=== PATIENT | female | born 1945 | race Caucasian/White ===

== ENCOUNTER 2023-10-07 11:48 | Outpatient (AMB) | payer MEDICARE, MEDICAID, SELFPAY ==
--- NOTE | 2023-10-07 12:01 | HO.NEPHOV_ITS ---
HPI HPI Comments History of Present Illness Details I had the privilege of seeing Selina in follow-up of her chronic kidney disease. She has history of hypertension and is on medications which is keeping her blood pressure at goal. She has osteoarthritis and had been taking nonsteroidals in the past which she has stopped. She has history of coronary artery disease but denies CVA, CHF, DEDRICK or PD. She had been a smoker. She maintains good hydration and avoids nonsteroidal anti-inflammatories. She does not have any active new complaints at the time this office visit. [facility] Medical History (Updated 10/21/23 @ 21:17 by Davion Pedroza MD) Vitamin D deficiency Hyperlipidemia Osteopenia Osteoarthrosis multiple sites, not specified as generalized Intraductal carcinoma in situ of left breast Hypothyroidism Acute myocardial infarction Surgical History S/P breast lumpectomy Family History Mother Hypertension Diabetes Daughter Cancer Hypertension Social History Alcohol intake: current Patient Tobacco Use Status: Current someday Tobacco user Vital Signs 10/07/23 12:02 Height 5 ft 1.5 in Weight 139 lb 4 oz BMI 25.9 Pulse 59 Pulse Source Pulse Oximeter Physical Exam Vital Signs: Last Vital Signs Pulse 59 10/07/23 12:02 BMI result Body Mass Index 25.9 Const General: comfortable and no acute distress Orientation/consciousness: patient oriented x3 HEENT Head: Yes normocephalic Mouth: Normal oral and palatal mucosa present Eyes EOM: EOMs intact bilaterally Neck Neck: Yes supple Resp Auscultation: clear to auscultation bilaterally Cardio Jugular venous distension: no JVD Rate: regular rate GI Palpation (GI): Soft to palpation Auscultation: normal bowel sounds General: Yes no CVA tenderness Back/Spine/Pelvis Back: no CVA tenderness Skin General skin exam: no rashes or lesions noted Neuro General: patient oriented x3 and moves all extremities Extrem General: Yes no pedal edema Assessment & Plan Assessment & Plan (1) Hypertension: Code(s): I10 - Essential (primary) hypertension Qualifiers: Hypertension type: primary hypertension Qualified Code(s): I10 - Essential (primary) hypertension (2) CKD (chronic kidney disease) stage 3, GFR 30-59 ml/min: Code(s): N18.30 - Chronic kidney disease, stage 3 unspecified Qualifiers: Chronic kidney disease stage 3 subtype: stage 3a (GFR 45-59) Qualified Code(s): N18.31 - Chronic kidney disease, stage 3a Nadia Marks has chronic kidney disease stage 3. Her renal functions had been stable. She has no renal artery stenosis by imaging studies. She has discontinued her nonsteroidal anti-inflammatories in the past. She tries to keep up with good hydration and maintain low-sodium diet. She is on ZORAIDA-inhibitor. Her blood pressure is at goal. I did not make any medication changes today. Follow-up lab work ordered. Answered all questions. Follow-up given. Orders: Orders Electrolytes 10/07/23 N18.30 - Chronic kidney disease, stage 3 unspecified, I10 - Essential (primary) hypertension Blood Urea Nitrogen 10/07/23 N18.30 - Chronic kidney disease, stage 3 unspecified, I10 - Essential (primary) hypertension Creatinine 10/07/23 N18.30 - Chronic kidney disease, stage 3 unspecified, I10 - Essential (primary) hypertension Calcium 10/07/23 N18.30 - Chronic kidney disease, stage 3 unspecified, I10 - Essential (primary) hypertension Protein Creatinine Ratio, Ur 10/07/23 N18.30 - Chronic kidney disease, stage 3 unspecified, I10 - Essential (primary) hypertension Coding Level of Care Code Est Pt Level 3 (37096) Diagnoses Primary hypertension I10 Hypertension type: primary hypertension Stage 3a chronic kidney disease N18.31 Chronic kidney disease stage 3 subtype: stage 3a (GFR 45-59) Results Reviewed Nephrology Results: No Data to Display
[2023-10-07 12:02] VITALS: PULSE 59; BMI 25.9
== END 2023-10-07 12:36 | disposition home or self-care (01) ==
PROVIDERS: PCP Family Medicine; Visit Provider Internal Medicine Nephrology
DX: I10 Essential (primary) hypertension (principal); N18.31 Chronic kidney disease, stage 3a
CPT/HCPCS: 99213

== ENCOUNTER → 2023-10-07 11:48 | Outpatient (BNVA) | payer MEDICARE, MEDICAID, SELFPAY | PROVIDERS: PCP Family Medicine; Visit Provider Internal Medicine Nephrology | DX: I12.9 Hypertensive chronic kidney disease with stage 1 through stage 4 chronic kidney disease, or unspecified chronic kidney disease (principal); N18.31 Chronic kidney disease, stage 3a | CPT/HCPCS: 99212 ==

== ENCOUNTER 2024-03-31 13:28 | Outpatient (REF) | payer MEDICARE, MEDICAID, SELFPAY ==
[2024-03-31 18:45] LABS: Anion Gap 12 (12-20); Blood Urea Nitrogen 22 mg/dL (9-16); Calcium 9.1 mg/dL (8.4-10.2); Carbon Dioxide 23 mmol/L (22-29); Chloride 111 mmol/L (96-108); Estimated Glomerular Filt Rate 48; Potassium 4.2 mmol/L (3.3-5.1); Sodium 142 mmol/L (135-145)
[2024-03-31 18:50] LABS: Creatinine Urine 57.31 mg/dL; Total Protein Urine Random < 7 mg/dL (<12)
== END 2024-03-31 13:29 | disposition home or self-care (01) ==
LOC: HO.HKASLDS 13:28
PROVIDERS: Visit Provider Internal Medicine Nephrology
DX: I12.9 Hypertensive chronic kidney disease with stage 1 through stage 4 chronic kidney disease, or unspecified chronic kidney disease (principal); N18.30 Chronic kidney disease, stage 3 unspecified
CPT/HCPCS: 36415; 80051; 82310; 82565; 82570; 84156; 84520

== ENCOUNTER 2024-04-09 11:50 | Outpatient (AMB) | payer MEDICARE, MEDICAID, SELFPAY ==
[2024-04-09 12:25] VITALS: BP 122/78; PULSE 58; O2SAT 95; BMI 27.2
--- NOTE | 2024-04-09 12:25 | HO.NEPHOV ---
Vital Signs 04/09/24 12:25 Height 5 ft 1.5 in Weight 146 lb 4 oz BMI 27.2 BP 122/78 Blood Pressure Location Rt brachial Position Sitting Pulse 58 Pulse Source Pulse Oximeter Pulse Oximetry (%) 95 Oxygen Delivery Method Room Air Intake Visit Reasons: 6M follow up/ Confirmed 04/02/2024 [employer] Manager Required: No Accompanied by: Self / Same As Patient Allergies latex Allergy (Verified 04/09/24 12:27) Rash Penicillins Allergy (Verified 04/09/24 12:27) Unknown HPI Comments Details: I had the privilege of seeing Selina in follow-up of her chronic kidney disease. She has history of hypertension and is on medications which is keeping her blood pressure at goal. She has osteoarthritis and had been taking nonsteroidals in the past which she has stopped. She has history of coronary artery disease but denies CVA, CHF, DEDRICK or PD. She had been a smoker. She maintains good hydration and avoids nonsteroidal anti-inflammatories. She does not have any active new complaints at the time this office visit. [facility] Medical History (Updated 10/21/23 @ 21:17 by Davion Pedroza MD) Vitamin D deficiency Hyperlipidemia Osteopenia Osteoarthrosis multiple sites, not specified as generalized Intraductal carcinoma in situ of left breast Hypothyroidism Acute myocardial infarction Surgical History S/P breast lumpectomy Family History Mother Hypertension Diabetes Daughter Cancer Hypertension Social History Alcohol intake: current Patient Tobacco Use Status: Current someday Tobacco user Physical Exam Vital Signs: Last Vital Signs Pulse 58 04/09/24 12:25 BP 122/78 04/09/24 12:25 Pulse Ox 95 04/09/24 12:25 Oxygen Delivery Method Room Air 04/09/24 12:25 BMI result Body Mass Index 27.2 Const General: comfortable and no acute distress Orientation/consciousness: patient oriented x3 HEENT Head: Yes normocephalic Mouth: Normal oral and palatal mucosa present Eyes EOM: EOMs intact bilaterally Neck Neck: Yes supple Resp Auscultation: clear to auscultation bilaterally Cardio Jugular venous distension: no JVD Rate: regular rate GI Palpation (GI): Soft to palpation Auscultation: normal bowel sounds General: Yes no CVA tenderness Back/Spine/Pelvis Back: no CVA tenderness Skin General skin exam: no rashes or lesions noted Neuro General: patient oriented x3 and moves all extremities Extrem General: Yes no pedal edema Results Reviewed Nephrology Results: Sodium 142 mmol/L (135-145) 03/31/24 Potassium 4.2 mmol/L (3.3-5.1) 03/31/24 Chloride 111 mmol/L (96-108) H 03/31/24 Carbon Dioxide 23 mmol/L (22-29) 03/31/24 BUN 22 mg/dL (9-16) H 03/31/24 Creatinine 1.11 mg/dL (0.5-1.4) 03/31/24 Calcium 9.1 mg/dL (8.4-10.2) 03/31/24 Urine Creatinine 57.31 mg/dL 03/31/24 Protein/Creatinin Ratio TNP 03/31/24 Assessment & Plan Assessment & Plan (1) CKD (chronic kidney disease) stage 3, GFR 30-59 ml/min: Code(s): N18.30 - Chronic kidney disease, stage 3 unspecified Category: Medical Qualifiers: Chronic kidney disease stage 3 subtype: stage 3a (GFR 45-59) Qualified Code(s): N18.31 - Chronic kidney disease, stage 3a (2) Hypertension: Code(s): I10 - Essential (primary) hypertension Category: Medical Qualifiers: Hypertension type: primary hypertension Qualified Code(s): I10 - Essential (primary) hypertension Plan Selina has chronic kidney disease stage 3. Her renal functions had been stable. She has no renal artery stenosis by imaging studies. She has discontinued her nonsteroidal anti-inflammatories in the past. She tries to keep up with good hydration and maintain low-sodium diet. She is on ZORAIDA-inhibitor. Her blood pressure is at goal. I did not make any medication changes today. Follow-up lab work ordered. Answered all questions. Follow-up given. Orders: Orders Blood Urea Nitrogen Today I10 - Essential (primary) hypertension, N18.31 - Chronic kidney disease, stage 3a Creatinine Today I10 - Essential (primary) hypertension, N18.31 - Chronic kidney disease, stage 3a Electrolytes Today I10 - Essential (primary) hypertension, N18.31 - Chronic kidney disease, stage 3a Coding Level of Care Code Est Pt Level 4 (93809) Diagnoses Stage 3a chronic kidney disease N18.31 Chronic kidney disease stage 3 subtype: stage 3a (GFR 45-59) Primary hypertension I10 Hypertension type: primary hypertension
== END 2024-04-09 12:43 | disposition home or self-care (01) ==
PROVIDERS: PCP Family Medicine; Visit Provider Internal Medicine Nephrology
DX: N18.31 Chronic kidney disease, stage 3a (principal); I10 Essential (primary) hypertension
CPT/HCPCS: 99214

== ENCOUNTER → 2024-04-09 11:50 | Outpatient (BNVA) | payer MEDICARE, MEDICAID, SELFPAY | PROVIDERS: PCP Family Medicine; Visit Provider Internal Medicine Nephrology | DX: I12.9 Hypertensive chronic kidney disease with stage 1 through stage 4 chronic kidney disease, or unspecified chronic kidney disease (principal); N18.31 Chronic kidney disease, stage 3a | CPT/HCPCS: 99212 ==

== ENCOUNTER 2024-11-12 15:20 | Outpatient (AMB) | payer MEDICARE, MEDICAID, SELFPAY ==
--- NOTE | 2024-11-12 16:02 | HO.NEPHOV_ITS ---
Vital Signs 11/12/24 16:03 Height 5 ft 1.5 in Weight 149 lb 5 oz BMI 27.8 BP 158/70 H Blood Pressure Location Lt brachial Position Sitting Pulse 61 Pulse Source Pulse Oximeter Pulse Oximetry (%) 95 Oxygen Delivery Method Room Air Intake Visit Reasons: 6 mon follow up-[employer] Senior Manager Required: No Accompanied by: Self / Same As Patient Allergies latex Allergy (Verified 11/12/24 16:03) Rash Penicillins Allergy (Verified 11/12/24 16:03) Unknown HPI Comments Details: Selina in follow-up of her chronic kidney disease. She has history of hypertension and is on medications which is keeping her blood pressure at goal. She has osteoarthritis and had been taking nonsteroidals in the past which she has stopped. She has history of coronary artery disease but denies CVA, CHF, DEDRICK or PD. She had been a smoker. She maintains good hydration and avoids nonsteroidal anti-inflammatories. She had partial right mastectomy and is going to have radiation [facility] Medical History (Updated 10/21/23 @ 21:17 by Davion Pedroza MD) Vitamin D deficiency Hyperlipidemia Osteopenia Osteoarthrosis multiple sites, not specified as generalized Intraductal carcinoma in situ of left breast Hypothyroidism Acute myocardial infarction Surgical History S/P breast lumpectomy Family History Mother Hypertension Diabetes Daughter Cancer Hypertension Social History Alcohol intake: current Patient Tobacco Use Status: Current someday Tobacco user Review of Systems Const All systems reviewed & are unremarkable except as noted in HPI and below Physical Exam Vital Signs: Last Vital Signs Pulse 61 11/12/24 16:03 BP 158/70 H 11/12/24 16:03 Pulse Ox 95 11/12/24 16:03 Oxygen Delivery Method Room Air 11/12/24 16:03 BMI result Body Mass Index 27.8 Const General: comfortable and no acute distress Orientation/consciousness: patient oriented x3 HEENT Head: Yes normocephalic Mouth: Normal oral and palatal mucosa present Eyes EOM: EOMs intact bilaterally Neck Neck: Yes supple Resp Auscultation: clear to auscultation bilaterally Cardio Jugular venous distension: no JVD Rate: regular rate GI Palpation (GI): Soft to palpation Auscultation: normal bowel sounds General: Yes no CVA tenderness Back/Spine/Pelvis Back: no CVA tenderness Skin General skin exam: no rashes or lesions noted Neuro General: patient oriented x3 and moves all extremities Extrem General: Yes no pedal edema Results Reviewed Nephrology Results: Sodium 142 mmol/L (135-145) 03/31/24 Potassium 4.2 mmol/L (3.3-5.1) 03/31/24 Chloride 111 mmol/L (96-108) H 03/31/24 Carbon Dioxide 23 mmol/L (22-29) 03/31/24 BUN 22 mg/dL (9-16) H 03/31/24 Creatinine 1.11 mg/dL (0.5-1.4) 03/31/24 Calcium 9.1 mg/dL (8.4-10.2) 03/31/24 Urine Creatinine 57.31 mg/dL 03/31/24 Protein/Creatinin Ratio TNP 03/31/24 Assessment & Plan Assessment & Plan (1) CKD (chronic kidney disease) stage 3, GFR 30-59 ml/min: Code(s): N18.30 - Chronic kidney disease, stage 3 unspecified Category: Medical Qualifiers: Chronic kidney disease stage 3 subtype: stage 3a (GFR 45-59) Qualified Code(s): N18.31 - Chronic kidney disease, stage 3a (2) Hypertension: Code(s): I10 - Essential (primary) hypertension Category: Medical Qualifiers: Hypertension type: primary hypertension Qualified Code(s): I10 - Esse ntial (primary) hypertension Plan Selina has chronic kidney disease stage 3. Her renal functions had been stable. She has no renal artery stenosis by imaging studies. She has discontinued her nonsteroidal anti-inflammatories in the past. She tries to keep up with good hydration and maintain low-sodium diet. She is on ZORAIDA-inhibitor. Her blood pressure is at goal. I did not make any medication changes today. Follow-up lab work ordered. Answered all questions. Follow-up given. Orders: Orders Anti DNA DS Antibody Today N18.31 - Chronic kidney disease, stage 3a Creatinine 6 Months I10 - Essential (primary) hypertension, N18.31 - Chronic kidney disease, stage 3a Blood Urea Nitrogen 6 Months I10 - Essential (primary) hypertension, N18.31 - Chronic kidney disease, stage 3a Electrolytes 6 Months I10 - Essential (primary) hypertension, N18.31 - Chronic kidney disease, stage 3a [facility] Reflex Titer and Pattern Today N18.31 - Chronic kidney disease, stage 3a Calcium 6 Months I10 - Essential (primary) hypertension, N18.31 - Chronic kidney disease, stage 3a Coding Level of Care Code Est Pt Level 4 (40951) Diagnoses Stage 3a chronic kidney disease N18.31 Chronic kidney disease stage 3 subtype: stage 3a (GFR 45-59) Primary hypertension I10 Hypertension type: primary hypertension
[2024-11-12 16:03] VITALS: BP 158/70; PULSE 61; O2SAT 95; BMI 27.8
== END 2024-11-12 16:31 | disposition home or self-care (01) ==
PROVIDERS: PCP Family Medicine; Visit Provider Internal Medicine Nephrology
DX: N18.31 Chronic kidney disease, stage 3a (principal); I10 Essential (primary) hypertension
CPT/HCPCS: 99214

== ENCOUNTER → 2024-11-12 15:20 | Outpatient (BNVA) | payer MEDICARE, MEDICAID, SELFPAY | PROVIDERS: PCP Family Medicine; Visit Provider Internal Medicine Nephrology | DX: I12.9 Hypertensive chronic kidney disease with stage 1 through stage 4 chronic kidney disease, or unspecified chronic kidney disease (principal); N18.31 Chronic kidney disease, stage 3a | CPT/HCPCS: 99212 ==

== ENCOUNTER 2024-11-24 14:17 | Outpatient (REF) | payer MEDICARE, MEDICAID, SELFPAY ==
[2024-11-25 17:03] LABS: Anti DNA DS Antibody <1 IU/mL
[2024-11-27 13:58] LABS: Anti Nuclear Antibody Screen NEGATIVE (NEGATIVE)
== END 2024-11-24 14:18 | disposition home or self-care (01) ==
LOC: HO.HKASLDS 14:17
PROVIDERS: Visit Provider Internal Medicine Nephrology
DX: N18.31 Chronic kidney disease, stage 3a (principal)
CPT/HCPCS: 36415; 86038; 86225

== ENCOUNTER 2025-05-03 13:26 | Outpatient (REF) | payer MEDICARE, MEDICAID, SELFPAY ==
--- OUTSIDE RECORDS SUMMARY | 2025-05-03 13:55 | XMS_ITS | Clinical Summary ---
Author Organization [facility] Address [address] [place] [address] Phone Care Team Providers Care Engineering Psychologist Name Role Phone Jody Mg MD Primary Care Provider + Allergies Active Allergy Reactions Criticality Noted Date Comments Latex Rash 02/14/2023 Other reaction(s): rash Penicillins Rash 12/31/2016 Medications aspirin 81 mg EC tablet Take 1 tablet (81 mg total) by mouth 1 (one) time each day. Active atorvastatin (LIPITOR) 10 mg tablet Take 1 tablet (10 mg total) by mouth every other day. Active levothyroxine (SYNTHROID, LEVOTHROID) 75 mcg tablet Take 1 tablet (75 mcg total) by mouth 1 (one) time each day before breakfast. 2 Active lisinopriL (PRINIVIL,ZESTR IL) 5 mg tablet Take 2 tablets (10 mg total) by mouth 2 (two) times daily before breakfast and lunch. 2 Active metoprolol tartrate (LOPRESSOR) 50 mg tablet Take 1 tablet (50 mg total) by mouth 2 (two) times a day. 2 Active OMEGA-3 FATTY ACIDS ORAL Take by mouth. Acti ve cholecalciferol (VITAMIN D-3) 25 mcg (1,000 unit) tablet Take 1 tablet (1,000 Units total) by mouth 1 (one) time each day. Active letrozole (FEMARA) 2.5 mg tablet Take 1 tablet (2.5 mg total) by mouth 1 (one) time each day Take with or without food. 90 tablet 3 5 Active Active Problems Problem Noted Date Diagnosed Date H/O: drug dependency ([facility] V24, [facility] V28) 12/03/2024 Osteoarthritis 12/03/2024 Infiltrating ductal carcinom a of right breast, estrogen receptor positive, stage 1 ([facility] V24, [facility] V28) 09/30/2024 Cancer Staging:Pathologic:Stage Unknown(pT1c, pNX, cM0, G2, ER+, IL+, HER2-) - Signed by Tiki Charles MD on 12/09/2024 Acute myocardial infarction ([facility] V24, [facility]/ C V28) 02/14/2023 Hypercholesterolemia 02/14/2023 Hypothyroidism 02/14/2023 Insomnia 02/14/2023 Osteopenia 02/14/2023 Substance dependence in roger ssion ([facility] V24, [facility] V28) 02/14/2023 Vitamin D deficiency 02/14/2023 Chronic kidney disease 11/13/2022 Coronary arteriosclerosis 11/13/2022 Overview (12/03/2024): s/p [place] two years ago Systemic lupus erythematosus ([facility] V24, [facility]/ [facility] V28) 11/13/2022 Ductal carcinoma in situ (DCIS) of left breast 0 05/24/2017 Depressive disorder 10/03/2009 Encounters Date Type Department Care Team Description 03/18/2025 10:00 AM EDT Office Visit [facility] Hematology Oncology [address] [place] [phone] Ramo Mg MD Infiltrating ductal carcinoma of right breast, estrogen receptor positive, stage 1 ([facility] V24, [facility] V28) (Primary Dx) 03/04/2025 10:40 AM EDT - 03/04/2025 11:59 PM EDT Hospital Encounter [facility] Radiation Oncology [address] [place] [phone] Whitney Mercado NP Infiltrating ductal carcinoma of right breast, estrogen receptor positive, stage 1 ([facility] V24, [facility] V28) (Primary Dx) Discharge Disposition: Home or Self Care 02/26/2025 10:05 AM EDT - 02/26/2025 11:59 PM EDT Hospital Encounter [facility] Bone Density [address] [place] [address] Infiltrating ductal carcinoma of right breast, estrogen receptor positive, stage 1 ([facility] V24, [facility] V28); Osteopenia of neck of femur, unspecified laterality; Age-related osteoporosis without current pathological fracture Discharge Disposition: Home or Self Care 02/15/2025 10:30 AM EDT Office Visit General Surgery - [place] [address] [facility] [address] [place] [address] Adam Huddleston MD History of right breast cancer (Primary Dx); History of partial mastectomy of right breast from Last 3 Months Immunizations Name Administration Dates Next Due Influenza Quadravalent, 0.5m l (Fluad) 65yo and older 08/15/2021 Influenza Quadravalent, 0.5m l (Fluzone High-dose) 65yo and older 09/23/2023,07/16/2022,08/24/2020 Influenza trivalent, 0.5mL ( Fluzone High-dose) 65yo and older 07/08/2024,07/05/2015 Influenza trivalent, with pr eservative (Fluzone; Afluria) 6mo and older 09/24/2019 Pneumococcal conjugate 13 va lent (Prevnar 13, PCV13) 2mo and older 08/16/2016 Pneumococcal polysaccharide 23 valent (Pneumovax 23) 2yo and older 02/28/2018 RSV, bivalent, protein subun it RSVpreF, 0.5mL, Preservative Free (ABRYSVO) 60yo and older or 32 through 36 wks of 10/11/2023 Td Tetanus diptheria (Tdvax) 7yo and older 01/29 Tdap Tetanus diptheria acell ular pertussis (Boostrix; Adacel) 7yo and older 03/06/2012 Zoster Live 03/07/2012 Zoster recombinant (Shingrix ) 19yo and older 11/13/2022,06/26/2022 Surgical History Surgery Date Site/Laterality Comments STEREOTACTIC CORE BIOPSY 10/19/2013 Left BREAST LUMPECTOMY CATARACT EXTRACTION CARDIAC CATHETERIZATION CORONARY STENT PLACEMENT Medical History Medical History Date Comments Dermatitis due to unknown cause DX:Dermatitis due to unknown cause Essential hypertension, malignant DX:Essential hypertension, malignant Intraductal carcinoma in situ of left breast DX:Intraductal carcinoma in situ of left breast Hypercholesteremia DX:Hyperchole steremia Arthritis DX:Arthritis Breast cancer ([facility] V24, [facility] V28) Chronic kidney disease Myocardial infarction ([facility] V24, [facility] V28) Disease of thyroid gland Hypothyroidism Family History Medical History Relation Name Comments Breast cancer Daughter Relation Name Status Comments Daughter Social History Tobacco Use Types Packs/Day Years Used Date Smoking Tobacco: Former Cigarettes Smokeless Tobacco: Never Tobacco Cessation:Counseling Given: Not Answered Alcohol Use Standard Drinks/Week Comments Yes 1 (1 standard drink = 0.6 oz pur e alcohol) occ glass of wine Comments No Sex and Gender Information Value Date Recorded Sex Assigned at Not on file Legal Sex Female 6:50 PM EST Gender Identity Not on file Sexual Orientation Not on file Occupation Industry Job Start Date Job End Date Retired Not on file Not on file Not on file Obstetrics History Para Term AB IAB SAB Ectopic Multiple Livin g Live Births 3 3 Date Outcome GA Total Labor Labor/2nd/3rd Weight Sex Type Anes PTL Denia A1 A5 Name Clin Para Para Para Last Filed Vital Signs Vital Sign Reading Time Taken Comments Blood Pressure 165/77 03/18/2025 10:01 AM EDT Pulse 61 03/18/2025 10:01 AM EDT Temperature 36.1 C (97 F) 03/18/2025 10:01 AM EDT Respiratory Rate 16 03/04/2025 10:44 AM EDT Oxygen Saturation 98% 03/18/2025 10:01 AM EDT Inhaled Oxygen Concentration - - Weight 69.9 kg (154 lb) 03/18/2025 10:01 AM EDT Height 154.9 cm (5' 1 ) 03/04/2025 10:44 AM EDT Body Mass Index 29.1 03/04/2025 10:44 AM EDT Plan of Treatment Upcoming Encounters Date Type Department Care Team (Late st Contact Info) Description 06/18/2025 10:00 AM EDT Office Visit [facility] Hematology Oncology [address] [place] [address] Ramo Mg MD [address] [place] [address] 08/16/2025 9:30 AM EDT Office Visit General Surgery - [place] [address] [facility] [address] [place] [address] Adam Huddleston MD [address] [place] [address] Health Maintenance Due Date Last Done Comments Cholesterol Screening (Lipid Panel) 10/13/2022 Depression Screening 10/13/2022 Falls Risk Assessment 10/13/2022 Hepatitis C Screening 10/13/2022 Medicare Annual Wellness Visit 10/13/2022 Social Influencers of Health Screening 10/13/2022 Hypertension/CHF/CAD Annual BMP Blood Test 09/14/2024 COVID-19 Vaccine (9 - Pfizer risk season) 2025 07/08/2024, 09/23/2023, 03/20/2023, Additional history exists DTaP,Tdap,and Td Vaccines (3 - Td or Tdap) 01/30/2032 01/29/2022, 03/06/2012 Osteoporosis Screening (Bone Density Screening) 02/26/2035 02/26/2025 Pneumococcal Vaccine: 50+ Years Completed 02/28/2018, 08/16/2016 Zoster Vaccines Completed 11/13/2022, 06/05, 03/07/2012 RSV Immunization Adult Patients Completed 10/11/2023 Influenza Vaccine Completed 07/08/2024, , 07/16/2022, Additional history exists HIB Vaccines Aged Out No longer eligi ble based on patient's age to complete this topic HPV Vaccines Aged Out No longer eligi ble based on patient's age to complete this topic Hepatitis A Vaccines Aged Out No long er eligible based on patient's age to complete this topic Hepatitis B Vaccines Aged Out No long er eligible based on patient's age to complete this topic IPV Vaccines Aged Out No longer eligi ble based on patient's age to complete this topic MMR Vaccines Aged Out No longer eligi ble based on patient's age to complete this topic Meningococcal ACWY Vaccine Aged Out N o longer eligible based on patient's age to complete this topic Meningococcal B Vaccine Aged Out No l onger eligible based on patient's age to complete this topic RSV Immunization Patients Under 20 months Aged Out No longer eligible based on patient's age to complete this topic Varicella Vaccines Aged Out No longer eligible based on patient's age to complete this topic Medical Devices Implanted Type Area Concrete Engineer Device Identifier Shelf Expiration Date Model / Serial / Lot Marker Hydrmrk 15g Rigd Ti 3 - [id number] Implanted:Qty: 1 on 09/23/2024 by Joni Samuel MD at [facility] Imaging Implants Right: Breast [employer] 03/30/2027 [id number]-T3 / / Marker 18ga Magseed 7cm - [id number] - [id number] Implanted:Qty: 1 on 10/26/2024 by Joni Samuel MD at [facility] Imaging Implants Right: Breast [employer] [id number] 05/03/2026 [id number] Procedures Procedure Name Priority Date/Time Associated Diagnosis Comments BD BONE DENSITY DXA AXIAL SKELETON Routine 02/26/2025 10:39 AM EDT Infiltrating ductal carcinoma of right breast, estrogen receptor positive, stage 1 (CMS/HCC V24, CMS/HCC V28) Osteopenia of neck of femur, unspecified laterality Age-related osteoporosis without current pathological fracture from Last 3 Months Results * BD Bone Density DXA Axial Skeleton (02/26/2025 10:39 AM EDT) Anatomical Region Laterality Modality Wrist, Hip, L-spine Bone Densito metry 03/01/2025 7:50 AM EDT Impressions 03/01/2025 7:51 AM EDT 1. Osteopenia. 2. FRAX analysis yields a 10-year probability of major osteoporotic fracture of 12.6% and a 10-year probability of hip fracture of 4.1%. Code 43405 -------- FINAL REPORT -------- Dictated By: Derik Ramos Dictated Date: 03/01/2025 07:50 ET Assigned Physician: Derik Ramos Reviewed and Electronically Signed By: Derik Ramos Signed Date: 03/01/2025 07:51 ET Workstation ID: [id number] Transcribed By: Self Edit Transcribed Date: 03/01/2025 07:50 ET Narrative 03/01/2025 7:51 AM EDT HISTORY: The patient is a 79-year-old postmenopausal female with clinical concern for metabolic bone disease. FINDINGS: Dual energy x-ray absorptiometry of the lumbar spine and femurs is performed. The mean bone mineral density at L1-L4 is 1.119 gm/cm2 which is 95% of that of young normals and 115% of that of age matched controls. This yields a T-score of -0.5 and a Z-score of 1.2 and there is therefore no evidence of osteoporosis or osteopenia here. The mean bone mineral density of the femurs bilaterally is 0.780 gm/cm2 which is 77% of that of young normals and 101% of that of age matched controls. This yields a T-score of -1.8 and a Z-score of 0.1 which is diagnostic of osteopenia. The T-score of the right femoral neck is -1.3 and that of the left femoral neck is -2.1 which is diagnostic of osteopenia. Procedure Note Derik Ramos MD - 03/01/2025 HISTORY: The patient is a 79-year-old postmenopausal female with clinicalconcern for metabolic bone disease. FINDINGS: Dual energy x-ray absorptiometry of the lumbar spine and femursis performed. The mean bone mineral density at L1-L4 is 1.119 gm/cm2 whichis 95% of that of young normals and 115% of that of age matched controls.This yields a T-score of -0.5 and a Z-score of 1.2 and there is thereforeno evidence of osteoporosis or osteopenia here. The mean bone mineral density of the femurs bilaterally is 0.780 gm/iq1scohn is 77% of that of young normals and 101% of that of age matchedcontrols. This yields a T-score of -1.8 and a Z-score of 0.1 which isdiagnostic of osteopenia. The T- score of the right femoral neck is -1.3and that of the left femoral neck is -2.1 which is diagnostic ofosteopenia. IMPRESSION: 1. Osteopenia. 2. FRAX analysis yields a 10-year probability of major osteoporoticfracture of 12.6% and a 10-year probability of hip fracture of 4.1%. Code 91169 -------- FINAL REPORT -------- Dictated By: Derik Ramos Dictated Date: 03/01/2025 07:50 ET Assigned Physician: Derik Ramos Reviewed and Electronically Signed By: Derik Ramos Signed Date: 03/01/2025 07:51 ET Workstation ID: [id number] Transcribed By: Self Edit Transcribed Date: 03/01/2025 07:50 ET Ramo Mg MD IMG DXA PROCEDURES Final Re sult from Last 3 Months Insurance [place] Advance Directives * Full Code - Default (Latest Code Status on File) Date Activated Date Inactivated Comments 10/27/2024 10:35 AM 10/27/2024 6:20 PM This is o rder is used when code status has not been discussed with the patient, or code status is otherwise unknown/unconfirmed To update the patient's code status, place a code status order. Do not modify or discontinue any currently active code status orders. Care Teams Engineering Psychologist Relationship Specialty Start Date End Date Jody Mg MD [address] [place] [phone] PCP - General Family Medicine 08/23/24
--- OUTSIDE RECORDS SUMMARY | 2025-05-03 13:55 | XMS_ITS | Clinical Summary ---
Author Organization [facility] Address [address] [place] [address] Care Team Providers Care Special Events Fundraiser Name Role Phone Jody Mg MD Primary Care Provider + [phone] Allergies No known active allergies Medications Medication Sig Dispensed Refills Start Date End Date Status metoprolol tartrate (LOPRESSOR) 50 MG tablet Take by mouth 2 (two) times a day. 0 Active lisinopril (PRINIVIL,ZESTRIL) tablet 5 mg Take 2 tablets (10 mg total) by mouth daily. 0 Active simvastatin (ZOCOR) tablet 40 mg Take 1 tablet (40 mg total) by mouth every night at bedtime. 0 Active CALCIUM PO Take by mouth. 0 Active aspirin EC 81 MG tablet Take 1 tablet (81 mg total) by mouth daily. 0 Active [place]-3 Fatty Acids (FISH OIL PO) Take by mouth. 0 Active levothyroxine (SYNTHROID, LEVOXYL) tablet 75 mcg Take 1 tablet (75 mcg total) by mouth every morning on an empty stomach. 0 Active Multiple Vitamins-Minerals (CENTRUM SILVER ADULT 50+ PO) Take by mouth. 0 Active Misc Natural Products (LUTEIN 20) CAPS Take by mouth. 0 Acti ve nabumetone (RELAFEN) 750 MG tablet Take 1 tablet (750 mg total) by mouth 2 (two) times a day. 0 Active atorvastatin (LIPITOR) tablet 10 mg Take 1 tablet (10 mg total) by mouth every other day. 0 Active Active Problems Problem Noted Date Diagnosed Date Ductal carcinoma in situ (DCIS) of left breast 0 05/24/2017 Social History Tobacco Use Types Packs/Day Years Used Date Smoking Tobacco: Former Smokeless Tobacco: Never Alcohol Use Standard Drinks/Week Comments Yes 0 (1 standard drink = 0.6 oz pur e alcohol) socially Sex and Gender Information Value Date Recorded Sex Assigned at Not on file Gender Identity Not on file Sexual Orientation Not on file Job Start Date Occupation Industry Not on file Not on file Not on file Last Filed Vital Signs Vital Sign Reading Time Taken Comments Blood Pressure 169/66 04/20/2024 11:56 AM EDT at doctor Daniel right before coming here BP was 122/78 Pulse 56 04/20/2024 11:56 AM EDT Temperature 36.3 C (97.3 F) 04/20/2024 11:56 AM EDT Respiratory Rate - - Oxygen Saturation 98% 04/20/2024 11: 56 AM EDT Inhaled Oxygen Concentration - - Weight 65.6 kg (144 lb 9.6 oz) 04/20/2024 11:56 AM EDT Height 160 cm (5' 3 ) 04/20/2024 11:56 AM EDT Body Mass Index 25.61 04/20/2024 11:56 AM EDT Plan of Treatment Health Maintenance Due Date Last Done Comments Hepatitis C Screening 1945 COVID-19 Vaccine (#1) 1951 Depression Screening 1958 Preventative Health Evaluation 1964 Shingrix-Zoster Vaccine (1 o f 2) 1965 Fall Risk Assessment 2011 Osteoporosis Screening (DEXA Scan) 2011 RSV Adult > 60+ Yrs or (1 - 1-dose 75+ series) 2021 DTap / Tdap / Td (2 - Td or Tdap) 03/06/2022 03/06/2012 Influenza Vaccine (Season Ended) 2025 09/24/2019 Pneumococcal Vaccine Completed 02/28/2018, 08/16/2016 Hepatitis B Vaccines Aged Out No long er eligible based on patient's age to complete this topic RSV Ped < 20 months Aged Out No longe r eligible based on patient's age to complete this topic Care Teams Special Events Fundraiser Relationship Specialty Start Date End Date Jody Mg MD [address] [place] [address] PCP - General Family Medicine 04/14/17
--- OUTSIDE RECORDS SUMMARY | 2025-05-03 13:55 | XMS_ITS | Clinical Summary ---
Author Organization [facility] Address [address] [facility] [address] [place] [address] Phone Care Team Providers Care Tax Compliance Representative Name Role Phone Jody Mg MD Primary Care Provider Allergies Active Allergy Reactions Criticality Noted Date Comments Latex 02/14/2023 Other reaction(s): rash Penicillins 12/31/2016 Medications levothyroxine (SYNTHROID, LEVOTHROID) 75 MCG tablet Take 75 mcg by mouth 1 (one) time each day 10/15/2022 Active lisinopril 5 MG tablet Take 5 mg by mouth 1 (one) time each day 09/04/2022 Active metoprolol tartrate (LOPRESSOR) 50 MG tablet Take 50 mg by mouth in the morning and 50 mg in the evening. 09/04/2022 Active nabumetone (RELAFEN) 750 MG tablet Take 750 mg by mouth in the morning and 750 mg in the evening. 11/01/2022 Active calcium carbonate (OS-ARON) 1250 (500 Ca) MG tablet Take 1 tablet by mouth 1 (one) time each day Active omega-3 (FISH OIL) 1000 MG capsule Take by mouth 1 (one) time each day Active atorvastatin (LIPITOR) 10 MG tablet Take 10 mg by mouth every other day 11/28/2022 Active Active Problems Problem Noted Date Diagnosed Date Acute myocardial infarction 02/14/2023 Substance dependence in remission 02/14/2023 Hypercholesterolemia 02/14/2023 Hypothyroidism 02/14/2023 Insomnia 02/14/2023 Malignant tumor of breast 02/14/2023 Osteopenia 02/14/2023 Vitamin D deficiency 02/14/2023 Chronic kidney disease 11/13/2022 Arthritis 11/13/2022 Coronary arteriosclerosis 11/13/2022 Overview (11/13/2022): s/p [place] two years ago Hypertension 11/13/2022 Systemic lupus erythematosus 11/13/2022 Depressive disorder 10/03/2009 Resolved Problems Problem Noted Date Diagnosed Date Resolved Date Intraductal carcinoma in situ of left breast 7 11/13/2022 Immunizations Immunization Administration Dates Next Due Pneumococcal Conjugate 13-Valent 08/16/2016 Pneumococcal Polysaccharide 02/28/2018 Tdap 03/06/2012 Zoster 03/07/2012 Family History Medical History Relation Comments Cancer Daughter Hypertension Daughter Diabetes Mother Hypertension Mother Relation Status Comments Daughter Alive Father Mother Social History Tobacco Use Types Packs/Day Years Used Date Smoking Tobacco: Some Days Cigarettes Smokeless Tobacco: Never Tobacco Cessation:Ready to Q uit: Not Asked; Counseling Given: Not Answered Alcohol Use Standard Drinks/Week Comments Yes 1 (1 standard drink = 0.6 oz pur e alcohol) Comments Unknown Sex and Gender Information Value Date Recorded Sex Assigned at Not on file Legal Sex Female 9:41 AM EDT Gender Identity Not on file Sexual Orientation Not on file Last Filed Vital Signs Vital Sign Reading Time Taken Comments Blood Pressure 130/80 02/14/2023 3:09 PM EDT Pulse 66 02/14/2023 3:09 PM EDT Temperature - - Respiratory Rate - - Oxygen Saturation - - Inhaled Oxygen Concentration - - Weight 64.3 kg (141 lb 12.8 oz) 02/14/2023 3:09 PM EDT Height - - Body Mass Index - - Plan of Treatment Health Maintenance Due Date Last Done Comments Pneumococcal Vaccine: 50+ Years Completed 02/28/2018, 08/16/2016 Influenza Vaccine Completed 07/08/2024, 08/15/2021, 07/05/2015 Hepatitis B Vaccine Aged Out No longe r eligible based on patient's age to complete this topic [place] [address] [place] Care Teams Tax Compliance Representative Relationship Specialty Start Date End Date Jody Mg MD [address] [place] [address] PCP - General Family Medicine 10/4/22
[2025-05-03 15:27] LABS: Anion Gap 12 (12-20); Blood Urea Nitrogen 22 mg/dL (9-16); Calcium 9.4 mg/dL (8.4-10.2); Carbon Dioxide 24 mmol/L (22-29); Chloride 109 mmol/L (96-108); Estimated Glomerular Filt Rate 42; Potassium 4.4 mmol/L (3.3-5.1); Sodium 141 mmol/L (135-145)
== END 2025-05-03 13:27 | disposition home or self-care (01) ==
LOC: HO.HKASLDS 13:26
PROVIDERS: Visit Provider Internal Medicine Nephrology
DX: I12.9 Hypertensive chronic kidney disease with stage 1 through stage 4 chronic kidney disease, or unspecified chronic kidney disease (principal); N18.31 Chronic kidney disease, stage 3a
CPT/HCPCS: 36415; 80051; 82310; 82565; 84520

== ENCOUNTER 2025-05-13 13:45 | Outpatient (AMB) | payer MEDICARE, MEDICAID, SELFPAY ==
--- OUTSIDE RECORDS SUMMARY | 2025-05-13 13:50 | XMS_ITS | Clinical Summary ---
Author Organization [facility] Address [address] [facility] [address] [place] [address] Phone Care Team Providers Care Floor Manager Name Role Phone Jody Mg MD Primary Care Provider [phone] Allergies Active Allergy Reactions Criticality Noted Date [...] 11/13/2022 Coronary arteriosclerosis 11/13/2022 Overview (11/13/2022): s/p [place] two years ago Hypertension 11/13/2022 Systemic lupus [...] Health Maintenance Due Date Last Done Comments Influenza Vaccine (#1) 2025 4, 08/15/2021, 07/05/2015 Pneumococcal Vaccine: 50+ Years Completed 02/28/2018, 08/16/2016 Hepatitis B Vaccine Aged Out No longe r eligible based on patient's age to complete this [place] [id number] [facility] Medicare Medicaid [place] Care Teams Floor Manager Relationship Specialty Start Date End Date Jody Mg MD [address] [place] [address] PCP - General Family Medicine 08/07/22
--- OUTSIDE RECORDS SUMMARY | 2025-05-13 13:50 | XMS_ITS | Clinical Summary ---
Author Organization [facility] Address [address] [place] [address] Care Team Providers Care Body And Frame Technician Name Role Phone Jody Mg MD Primary Care Provider + [phone] Allergies No known active allergies Medications Medication [...] mg total) by mouth daily. 0 Active [place]-3 Fatty Acids (FISH OIL PO) Take by [...] Td or Tdap) 03/06/2022 03/06/2012 Influenza Vaccine (#1) 2025 09/24/2019 Pneumococcal Vaccine Completed 02/28/2018, 08/16/2016 Hepatitis B Vaccines Aged Out No long er eligible based on patient's age to complete this topic RSV Ped < 20 months Aged Out No longe r eligible based on patient's age to complete this topic Care Teams Body And Frame Technician Relationship Specialty Start Date End Date Jody Mg MD [address] [place] [address] PCP - General Family Medicine 04/14/17
--- OUTSIDE RECORDS SUMMARY | 2025-05-13 13:50 | XMS_ITS | Clinical Summary ---
Author Organization [facility] Address [address] [place] [address] Phone Care Team Providers Care Fabric Worker Leader Name Role Phone Jody Mg MD Primary [...] Noted Date Diagnosed Date H/O: drug dependency ([facility] V24, [facility] V28) 12/03/2024 Osteoarthritis 12/03/2024 Infiltrating ductal carcinom a of right breast, estrogen receptor positive, stage 1 ([facility] V24, [facility] V28) 09/30/2024 Cancer Staging:Pathologic:Stage Unknown(pT1c, pNX, cM0, G2, ER+, MS+, HER2-) - Signed by Tiki Charles MD on 12/09/2024 Acute myocardial infarction ([facility] V24, [facility]/ C V28) 02/14/2023 Hypercholesterolemia 02/14/2023 Hypothyroidism 02/14/2023 Insomnia 02/14/2023 Osteopenia 02/14/2023 Substance dependence in roger ssion ([facility] V24, [facility] V28) 02/14/2023 Vitamin D deficiency 02/14/2023 Chronic kidney disease 11/13/2022 Coronary arteriosclerosis 11/13/2022 Overview (12/03/2024): s/p IN two years ago Systemic lupus erythematosus ([facility] V24, [facility]/ [facility] V28) 11/13/2022 Ductal carcinoma in situ (DCIS) of left breast 0 05/24/2017 Depressive disorder 10/03/2009 Encounters Date Type Department Care Team Description 03/18/2025 10:00 AM EDT Office Visit [facility] Hematology Oncology [address] [place] [phone] Ramo Mg MD Infiltrating ductal carcinoma of right breast, estrogen receptor positive, stage 1 ([facility] V24, [facility] V28) (Primary Dx) 03/04/2025 10:40 AM EDT - 03/04/2025 11:59 PM EDT Hospital Encounter [facility] Radiation Oncology [address] [place] [phone] Whitney Mercado NP Infiltrating ductal carcinoma of right breast, estrogen receptor positive, stage 1 ([facility] V24, [facility] V28) (Primary Dx) Discharge Disposition: Home or Self Care 02/26/2025 10:05 AM EDT - 02/26/2025 11:59 PM EDT Hospital Encounter [facility] Bone Density [address] [place] [address] Infiltrating ductal carcinoma of right breast, estrogen receptor positive, stage 1 ([facility] V24, [facility] V28); Osteopenia of neck of femur, unspecified laterality; Age-related osteoporosis without current pathological fracture Discharge Disposition: Home or Self Care 02/15/2025 10:30 AM EDT Office Visit General Surgery - [facility] [address] [facility] [address] [place] [address] Adam Huddleston MD History of [...] Hypercholesteremia DX:Hyperchole steremia Arthritis DX:Arthritis Breast cancer ([facility] V24, [facility] V28) Chronic kidney disease Myocardial infarction ([facility]/ [facility] V24, [facility] V28) Disease of thyroid gland Hypothyroidism Family [...] Description 06/18/2025 10:00 AM EDT Office Visit [facility] Hematology Oncology [address] [place] [phone] Ramo Mg MD [address] [place] [phone] 08/16/2025 9:30 AM EDT Office Visit General Surgery - [facility] [address] [facility] [address] [place] [address] Adam Huddleston MD [address] [facility] [address] [place] [address] Health Maintenance Due Date Last Done Comments Cholesterol Screening (Lipid Panel) 10/13/2022 Depression Screening 10/13/2022 Falls Risk Assessment 10/13/2022 Hepatitis C Screening 10/13/2022 Medicare Annual Wellness Visit 10/13/2022 Social Influencers of Health Screening 10/13/2022 Hypertension/CHF/CAD Annual BMP Blood Test 09/14/2024 COVID-19 Vaccine (9 - Pfizer risk season) 2025 07/08/2024, 09/23/2023, 03/20/2023, Additional history exists Influenza Vaccine (#1) 2025 , 09/23/2023, 07/16/2022, Additional history exists DTaP,Tdap,and Td Vaccines (3 - Td or Tdap) 01/30/2032 01/29/2022, 03/06/2012 Osteoporosis Screening (Bone Density Screening) 02/26/2035 02/26/2025 Pneumococcal Vaccine: 50+ Years Completed 02/28/2018, 08/16/2016 Zoster Vaccines Completed 11/13/2022, 06/05, 03/07/2012 RSV Immunization Adult Patients Completed 10/11/2023 HIB Vaccines Aged Out No longer eligi [...] this topic Medical Devices Implanted Type Area Olericulture Teacher Device Identifier Shelf Expiration Date Model / Serial / Lot Marker Hydrmrk 15g Rigd Ti 3 - [id number] Implanted:Qty: 1 on 09/23/2024 by Joni Samuel MD at [facility] Imaging Implants Right: Breast [employer] 03/30/2027 [id number]-T3 / / Marker 18ga Magseed 7cm - [id number] - [id number] Implanted:Qty: 1 on 10/26/2024 by Joni Samuel MD at [facility] Imaging Implants Right: Breast [employer] [id number] 05/03/2026 [id number] Procedures Procedure Name Priority Date/Time Associated Diagnosis [...] probability of hip fracture of 4.1%. Code 70526 -------- FINAL REPORT -------- Dictated By: Derik Ramos Dictated Date: 03/01/2025 07:50 ET Assigned Physician: Derik Ramos Reviewed and Electronically Signed By: Derik Ramos Signed Date: 03/01/2025 07:51 ET Workstation ID: [id number] Transcribed By: Self Edit Transcribed Date: 03/01/2025 [...] density of the femurs bilaterally is 0.780 gm/yp1dmsxw is 77% of that of young normals [...] probability of hip fracture of 4.1%. Code 97858 -------- FINAL REPORT -------- Dictated By: Derik Ramos Dictated Date: 03/01/2025 07:50 ET Assigned Physician: Derik Ramos Reviewed and Electronically Signed By: Derik Ramos Signed Date: 03/01/2025 07:51 ET Workstation ID: [id number] Transcribed By: Self Edit Transcribed Date: 03/01/2025 [...] currently active code status orders. Care Teams Fabric Worker Leader Relationship Specialty Start Date End Date Jody Mg MD [address] [place] [phone] PCP - General Family Medicine 08/23/24
[2025-05-13 14:04] VITALS: BP 130/80; PULSE 62; O2SAT 94; BMI 27.5
--- NOTE | 2025-05-13 14:04 | HO.NEPHOV_ITS ---
Vital Signs 05/13/25 14:04 Height 5 ft 1.5 in Weight 148 lb BMI 27.5 BP 130/80 Blood Pressure Location Lt brachial Position Sitting Pulse 62 Pulse Source Pulse Oximeter Pulse Oximetry (%) 94 Oxygen Delivery Method Room Air Intake Visit Reasons: 6mon follow-up w/labs-Conf Cardiovascular Technologist Required: No Accompanied by: Self / Same As Patient Allergies latex Allergy (Verified 11/12/24 16:03) Rash Penicillins Allergy (Verified 11/12/24 16:03) Unknown HPI Comments Details: Selina in follow-up of her chronic kidney disease. She has history of hypertension and is on medications which is keeping her blood pressure at goal. She has osteoarthritis and had been taking nonsteroidals in the past which she has stopped. She has history of coronary artery disease but denies CVA, CHF, DEDRICK or PD. She had been a smoker. She maintains good hydration and avoids nonsteroidal anti-inflammatories. She had partial right mastectomy and had radiation & is currently on letrozole [facility] Medical History (Updated 10/21/23 @ 21:17 by Davion Pedroza MD) Vitamin D deficiency Hyperlipidemia Osteopenia Osteoarthrosis multiple sites, not specified as generalized Intraductal carcinoma in situ of left breast Hypothyroidism Acute myocardial infarction Surgical History S/P breast lumpectomy Family History Mother Hypertension Diabetes Daughter Cancer Hypertension Social History Alcohol intake: current Patient Tobacco Use Status: Current someday Tobacco user Review of Systems Const All systems reviewed & are unremarkable except as noted in HPI and below Physical Exam Vital Signs: Last Vital Signs Pulse 62 05/13/25 14:04 BP 180/80 H 05/13/25 14:04 Pulse Ox 94 05/13/25 14:04 Oxygen Delivery Method Room Air 05/13/25 14:04 BMI result Body Mass Index 27.5 Const General: comfortable and no acute distress Orientation/consciousness: patient oriented x3 HEENT Head: Yes normocephalic Mouth: Normal oral and palatal mucosa present Eyes EOM: EOMs intact bilaterally Neck Neck: Yes supple Resp Auscultation: clear to auscultation bilaterally Cardio Jugular venous distension: no JVD Rate: regular rate GI Palpation (GI): Soft to palpation Auscultation: normal bowel sounds General: Yes no CVA tenderness Back/Spine/Pelvis Back: no CVA tenderness Skin General skin exam: no rashes or lesions noted Neuro General: patient oriented x3 and moves all extremities Extrem General: Yes no pedal edema Results Reviewed Nephrology Results: Sodium, (135-145) 141 mmol/L 05/03/25 Potassium, (3.3-5.1) 4.4 mmol/L 05/03/25 Chloride, (96-108) 109 mmol/L H 05/03/25 Carbon Dioxide, (22-29) 24 mmol/L 05/03/25 BUN, (9-16) 22 mg/dL H 05/03/25 Creatinine, (0.5-1.4) 1.23 mg/dL 05/03/25 Calcium, (8.4-10.2) 9.4 mg/dL 05/03/25 Urine Creatinine 57.31 mg/dL 03/31/24 Protein/Creatinin Ratio TNP 03/31/24 Assessment & Plan Assessment & Plan (1) Hypertension: Code(s): I10 - Essential (primary) hypertension Category: Medical Qualifiers: Hypertension type: primary hypertension Qualified Code(s): I10 - Essential (primary) hypertension (2) CKD (chronic kidney disease) stage 3, GFR 30-59 ml/min: Code(s): N18.30 - Chronic kidney disease, stage 3 unspecified Category: Medical Qualifiers: Chronic kidney disease stage 3 subtype: stage 3a (GFR 45-59) Qualified Code(s): N18.31 - Chronic kidney disease, stage 3a Nadia Marks has chronic kidney disease stage 3. Her renal functions had been stable. She has no renal artery stenosis by imaging studies. She has discontinued her nonsteroidal anti-inflammatories in the past. She tries to keep up with good hydration and maintain low-sodium diet. She is on ZORAIDA-inhibitor. Her blood pressure is at goal. I did not make any medication changes today. Follow-up lab work ordered. Answered all questions. Follow-up given. Orders: Orders Creatinine 6 Months I10 - Essential (primary) hypertension, N18.31 - Chronic kidney disease, stage 3a Blood Urea Nitrogen 6 Months I10 - Essential (primary) hypertension, N18.31 - Chronic kidney disease, stage 3a Electrolytes 6 Months I10 - Essential (primary) hypertension, N18.31 - Chronic kidney disease, stage 3a Coding Level of Care Code Est Pt Level 4 (49148) Diagnoses Primary hypertension I10 Hypertension type: primary hypertension Stage 3a chronic kidney disease N18.31 Chronic kidney disease stage 3 subtype: stage 3a (GFR 45-59)
== END 2025-05-13 14:37 | disposition home or self-care (01) ==
LOC: HO.HKAS 13:46
PROVIDERS: PCP Family Medicine; Visit Provider Internal Medicine Nephrology
DX: I10 Essential (primary) hypertension (principal); N18.31 Chronic kidney disease, stage 3a
CPT/HCPCS: 99214

== ENCOUNTER → 2025-05-13 13:45 | Outpatient (BNVA) | payer MEDICARE, MEDICAID, SELFPAY | PROVIDERS: PCP Family Medicine; Visit Provider Internal Medicine Nephrology | DX: I12.9 Hypertensive chronic kidney disease with stage 1 through stage 4 chronic kidney disease, or unspecified chronic kidney disease (principal); N18.31 Chronic kidney disease, stage 3a | CPT/HCPCS: 99212 ==